=== PATIENT | female | born 1955 | race Caucasian/White ===

== ENCOUNTER → 2016-10-14 | Outpatient (CLI) | payer BC ==
[2014-08-07 10:03] VITALS: BP 109/64
[~2016-10-14] MED LIST: AMIT50TA PO; ATEN25TA PO; CA C1TAB63 PO; DULO30CA2 PO; FLUT16SP2 NS; HYDR-2762 PO; HYDR-971 PO; INSU100I13 SQ; INSU100V9 SQ; LOSA1TAB16 PO; METF10002 PO; MULT-658 PO; OMEP20CA9 PO; PRED20TA PO; PROAIR HFA8.5 GM IH; SUMA100T4 PO
--- NOTE | 2016-10-14 17:15 | CARD ---
APPROVED REPORT INDICATION Chest tightness RISK FACTORS Hypertension Obesity Reason : Abnormal EKG PROCEDURE The patient underwent an Exercise Stress Test using the Harish Protocol. Blood pressure, heart rate, a nd EKG were monitored. An Echocardiogram was performed by chemistry technician in four stages in quad fashion. At peak stress four se lected images were obtained and placed side by side with resting images for comparison. STRESS ECHO FINDINGS The resting Echocardiogram showed normal left ventricular contractility with an estimated Ejection Fr action of about 60 %. Normal augmentation of myocardial wall segments using a 16 segment model. Test Type: Exercise Stress Nurse/Tech: Darline Buckner R.N. Test Indications: chest tightness Cardiac History and Allergies: htn, dm, Medications: atenolol, losartan, Medical History: see ehr Resting ECG: sr Resting Heart Rate: 98 bpm Resting Blood Pressure: 135/72mmHg Pretest Chest Pain: No chest pain Nurse/Tech Notes lungs cta, heart tones, good pulse Consent: The procedure was explained to the patient in lay terms. Informed consent was witnessed. Leo eout was entered into [employer]. History and Stress Test performed by Darline Buckner R.N. Stress Symptoms No chest pain or symptoms.Fatigue POST EXERCISE Reason for Termination: Reached target heart rate, Fatigue Target HR: Yes Max HR: 144 bpm 90% of Maximum Predicted HR: 160 bpm Exercise duration: 4:04 min:sec, 2 Stage Exercise capacity: 7.0METs Max Blood Pressure: 168/57mmHg Blood Pressure response to exercise: Normal blood pressure response during stress. Chest Pain: No. Arrhythmia: No. ST Change: No. STRESS ECG Stress EKG shows no significant changes. <Conclusion> Below-average exercise capacity with only 4 minutes of exercise time. No significant EKG changes to suggest ischemia at less than average workload. Resting echocardiogram demonstrates normal LV function and grossly normal wall motion, limited images due to body habitus. Stress echocardiogram demonstrates normal wall motion with appropriate augmentation, again limited im ages due to body habitus but no gross evidence of ischemia. Overall, low risk study.
== END | disposition home or self-care (01) ==
LOC: ECHO 12:49
PROVIDERS: ATTEND Family Medicine
DX: R07.89 Other chest pain (principal)
CPT/HCPCS: 93017; 93350